=== PATIENT | female | born 1950 | race Native Hawaiian/Other Pacific Islander ===

== ENCOUNTER 2016-04-08 12:19 | Outpatient (CLI) | payer BC ==
[~2016-04-08 12:19] MED LIST: BISO5TAB2 PO; CALCIUM/VITAMIN1 TA3 PO; CLARITIN10 MG PO; DIOVAN HC2 PO; FERROUS SULF325 M1 PO; LEVO0.1519 PO; LIPITOR10 MG PO
== END 2016-04-08 23:05 | disposition home or self-care (01) ==
LOC: RAD 12:19
DX: Z96.651 Presence of right artificial knee joint (principal)

== ENCOUNTER 2018-04-09 12:47 | Outpatient (CLI) | payer OTHER | END 2018-04-09 19:50 | disposition home or self-care (01) | LOC: MAMMO 12:47 | DX: Z12.31 Encounter for screening mammogram for malignant neoplasm of breast (principal) ==